=== PATIENT | female | born 1950 | race Caucasian/White ===

== ENCOUNTER → 2017-01-14 | Outpatient (CLI) | payer MEDICARE ==
[~2017-01-14] MED LIST: ATOR40TA2 PO; CALCIUM DAILY; CHOL200018 PO; CINN500C14 PO; CO ENZYME Q; CRAN400C PO; QTP25T PO; SENN8.6T6 PO; ZIJA; [UNRECOGNIZED DRUG - OTHER]
--- NOTE | 2017-01-15 09:09 | Diagnostic Imaging Report ---
DIG [facility] BILAT SCREEN W CAD COMPARISON: 04/20/2015 INDICATION: Screening mammography. TECHNIQUE: Digital screening mammography was obtained with a computer-aided detection (CAD) system. FINDINGS: The breasts are heterogeneously dense, which is asymmetric to the left. Lumpectomy changes in the right breast are similar. No new dominant mass, suspicious microcalcifications or architectural distortion to suggest malignancy. Vascular calcifications in left breast are unchanged. IMPRESSION: Stable mammogram without evidence of malignancy. Followup screening mammogram in 12 months is recommended. ACR BI-RADS Category 2: Benign findings. Result letter will be mailed to the patient. Note: At least 10% of breast cancer is not imaged by mammography. Dictated by: Dictated on workstation # [id number]
== END ==
LOC: RAD 10:22
PROVIDERS: ATTEND Family Medicine
DX: Z12.31 Encounter for screening mammogram for malignant neoplasm of breast (principal)